=== PATIENT | female | born 1975 | race Two or more races ===

== ENCOUNTER 2024-05-17 18:59 | Emergency (ER) | payer OTHER ==
[~2024-05-17] VITALS: Ht 157.5 cm; Wt 68.0 kg
[2024-05-17] MEDS ORDERED: KETOROLAC TROMETHAMINE 30 MG VIAL IM ONE (20:15)
[2024-05-17] MEDS ORDERED: KETOROLAC TROMETHAMINE 30 MG VIAL ONE (20:36)
== END 2024-05-17 22:11 ==
LOC: ER 19:02
DX: S40.011A Contusion of right shoulder, initial encounter (principal); W01.0XXA Fall on same level from slipping, tripping and stumbling without subsequent striking against object, initial encounter; Y93.89 Activity, other specified; Y92.018 Other place in single-family (private) house as the place of occurrence of the external cause
CPT/HCPCS: 73000; 73030; 96372; 99283; J1885